=== PATIENT | female | born 1960 | race Caucasian/White ===

== ENCOUNTER 2017-01-03 18:30 | Emergency (ER) | payer MEDICAID ==
[~2017-01-03] VITALS: Ht 160 cm; Wt 63.0 kg
[~2017-01-03 18:30] MED LIST: INSU3INS6 SUBCUT; NVLG73 SUBCUT; PHEN100C4 PO
[2017-01-03 18:44] VITALS: BP 152/78
== END 2017-01-03 23:03 | disposition left against medical advice (07) ==
LOC: ER 18:31
DX: Z53.21 Procedure and treatment not carried out due to patient leaving prior to being seen by health care provider (principal)

== ENCOUNTER 2018-03-29 00:46 | Emergency (ER) | payer MEDICAID ==
[~2018-03-29] VITALS: Ht 157.5 cm; Wt 64.0 kg
[2018-03-29] MEDS ORDERED: HYDROCODONE/ACETAMINOPHEN 10/325MG TABLET PO ONE (04:00)
[2018-03-29 05:17] VITALS: BP 124/73
== END 2018-03-29 05:26 | disposition home or self-care (01) ==
LOC: ER 00:46
DX: S82.402A Unspecified fracture of shaft of left fibula, initial encounter for closed fracture (principal); E11.9 Type 2 diabetes mellitus without complications; R56.9 Unspecified convulsions; Z88.5 Allergy status to narcotic agent; Z79.899 Other long term (current) drug therapy; W01.0XXA Fall on same level from slipping, tripping and stumbling without subsequent striking against object, initial encounter; Y93.89 Activity, other specified; Y92.89 Other specified places as the place of occurrence of the external cause; Y99.8 Other external cause status
CPT/HCPCS: 29515; 73610; 99284; Z7610

== ENCOUNTER 2018-05-13 17:24 | Emergency (ER) | payer SELFPAY ==
[~2018-05-13] VITALS: Ht 157.5 cm; Wt 64.0 kg
[2018-05-13] MEDS ORDERED: AMOXICILLIN/POTASSIUM CLAVULANATE 875/125MG TAB PO ONE (20:00)
[2018-05-13] MEDS ORDERED: TETANUS AND DIPHTHERIA TOX/PF 0.5ML SYR (ADULT) IM ONE (20:00)
[2018-05-13] MEDS ORDERED: HYDROCODONE/ACETAMINOPHEN 5/325MG TABLET PO ONE (20:30)
[2018-05-13] MEDS ORDERED: IBUPROFEN 600MG TABLET PO ONE (21:00)
[2018-05-13] MEDS ORDERED: AMPICILLIN SOD/SULBACTAM NA 3 G in SODIUM CHLORIDE 0.9% 100 ML IV SCH (21:00)
[2018-05-13 21:21] LABS: BASOPHILS % 0.4 % (0.0-2.0); EOSINOPHILS % 0.5 % (0.0-5.0); HEMATOCRIT. 37.1 % (36.0-48.0); HEMOGLOBIN. 12.7 g/dL (12.0-16.0); LYMPHOCYTES % 23.7 % (20.0-50.0); MEAN CORPUSCULAR HEMOGLOBIN 32.2 pg (28.0-32.0); MEAN PLATELET VOLUME 8.1 fl (7.4-10.4); MONOCYTES % 5.9 % (2.0-8.0); NEUTROPHILS % 69.5 % (40.0-76.0); PLATELET 389 x1000/uL (130-400); RED BLOOD CELL COUNT 3.95 mill/uL (4.2-5.4); RED CELL DISTRIBUTION WIDTH 14.4 % (11.6-14.6)
[2018-05-13 21:23] LABS: CHLORIDE 102 mEq/L (98-107)
[2018-05-13] MEDS ORDERED: IBUPROFEN 600MG TABLET PO SCH (21:45)
[2018-05-13] MEDS ORDERED: SODIUM CHLORIDE 0.9% 1000ML BAG (SEPSIS BOLUS) IV ONE (23:15)
[2018-05-13] MEDS ORDERED: HYDRALAZINE 20MG/ML VIAL IV ONE (23:30)
[2018-05-13 23:42] VITALS: BP 160/90
== END 2018-05-14 00:19 | disposition short-term general hospital (02) ==
LOC: ER 17:24
DX: S51.852A Open bite of left forearm, initial encounter (principal); S41.152A Open bite of left upper arm, initial encounter; W54.0XXA Bitten by dog, initial encounter; Y93.89 Activity, other specified; Y92.89 Other specified places as the place of occurrence of the external cause
CPT/HCPCS: 36415; 73060; 73090; 80053; 83605; 85025; 87040; 96365; 96375; 99285; J0295; J0360; J7030; Z7610; 90714; J7050

== ENCOUNTER 2022-06-11 16:23 | Emergency (ER) | payer MEDICAID | END 2022-06-11 18:17 | disposition left against medical advice (07) | LOC: ER 16:23 | DX: Z53.21 Procedure and treatment not carried out due to patient leaving prior to being seen by health care provider (principal); Z88.6 Allergy status to analgesic agent ==

== ENCOUNTER 2024-03-16 19:36 | Emergency (ER) | payer MEDICAID ==
[~2024-03-16] VITALS: Ht 160 cm; Wt 47.0 kg
[2024-03-16 20:03] VITALS: BP 185/101; PULSE 94; RESP 18; TEMP 98.6; O2SAT 100
[2024-03-16] MEDS ORDERED: ACETAMINOPHEN 325MG TABLET PO ONE (20:30)
[2024-03-16 21:14] LABS: BASOPHILS % 0.3 % (0.0-2.0); EOSINOPHILS % 0.6 % (0.0-5.0); LYMPHOCYTES % 14.9 % (20.0-50.0); MEAN CORPUSCULAR HGB CONC 33.4 g/dL (31.0-37.0); MEAN CORPUSCULAR VOLUME 92.9 fL (81.0-99.0); MEAN PLATELET VOLUME 8.5 fl (7.4-10.4); MONOCYTES % 5.4 % (2.0-8.0); NEUTROPHILS % 78.8 % (40.0-76.0); PLATELET 362 x1000/uL (130-400); RED BLOOD CELL COUNT 3.23 mill/uL (4.2-5.4); RED CELL DISTRIBUTION WIDTH 13.4 % (11.6-14.6); WHITE BLOOD COUNT 9.4 x1000/uL (4.5-11.0)
[2024-03-16 21:22] LABS: CHLORIDE 109 mEq/L (98-107); POTASSIUM 3.4 mEq/L (3.5-5.1); SODIUM 136 mEq/L (136-145)
[2024-03-16 21:23] LABS: CALCIUM 8.3 mg/dL (8.7-10.4); CARBON DIOXIDE 22 mEq/L (21-32)
[2024-03-16 21:28] LABS: GLUCOSE 177 mg/dL (70-105); UREA NITROGEN BLOOD 24 mg/dL (9-23)
[2024-03-16 21:29] LABS: TROPONIN I HIGH SENSITIVITY 14 ng/L (3.0-34)
== END 2024-03-16 21:48 | disposition left against medical advice (07) ==
LOC: ER 19:36
DX: R07.89 Other chest pain (principal); E11.9 Type 2 diabetes mellitus without complications; Z53.21 Procedure and treatment not carried out due to patient leaving prior to being seen by health care provider; Z86.59 Personal history of other mental and behavioral disorders
CPT/HCPCS: 36415; 71045; 80048; 84484; 85025; 93005; 99285